=== PATIENT | female | born 1935 | race Caucasian/White ===

== ENCOUNTER 2016-11-27 11:15 | Day surgery (SDC) | payer MEDICARE ==
[~2016-11-27] VITALS: Ht 156.2 cm; Wt 71.6 kg
[2016-12-14] MEDS ORDERED: ASA CHILDREN'S81 MG PO (12:24)
[2016-12-14] MEDS ORDERED: KLOR-CON M2020 ME1 PO (12:24)
[2016-12-14] MEDS ORDERED: MIRALAX PACKET17 GM PO (12:25)
[2017-02-05] MEDS ORDERED: PROTONIX40 MG PO (17:16)
[2017-02-05] MEDS ORDERED: ACCUPRIL10 MG PO (17:16)
[2017-02-05] MEDS ORDERED: FLONASE 0.05% D16 GM NS (17:17)
[2017-02-05] MEDS ORDERED: COMPAZINE DPS5 MG PO (17:17)
[2017-02-05] MEDS ORDERED: CATAPRES-TTS 11 EACH TD (17:17)
[2017-02-05] MEDS ORDERED: COLACE-DPS100 MG PO (17:17)
[2017-02-05] MEDS ORDERED: MAALOX DPS30 ML PO (17:17)
[2017-02-05] MEDS ORDERED: ZOFRAN4 MG PO (17:18)
[2017-02-05] MEDS ORDERED: TYLENOL DPS325 MG PO (17:18)
[2017-02-05] MEDS ORDERED: DUONEB DPS3 ML IH (17:18)
[2017-02-05] MEDS ORDERED: ANALGESIC BALM30 GM TP (17:19)
[2017-02-05] MEDS ORDERED: PRILOSEC DPS20 MG PO (17:22)
== END 2016-11-27 14:28 | disposition home or self-care (01) ==
LOC: RAD.S 11:15 → EDSTATUS 13:00 → RAD.S 13:00
DX: C34.90 Malignant neoplasm of unspecified part of unspecified bronchus or lung (principal); Z88.2 Allergy status to sulfonamides; Z88.8 Allergy status to other drugs, medicaments and biological substances; Z88.0 Allergy status to penicillin; Z79.82 Long term (current) use of aspirin; Z79.899 Other long term (current) drug therapy